=== PATIENT | male | born 1980 ===

== ENCOUNTER 2017-10-02 10:28 | Emergency (ER) | payer OTHER ==
[2017-10-02 11:10] VITALS: BP 108/72
--- NOTE | 2017-10-02 11:37 | UC ---
Skin Complaint HPI - HPI Summary HPI Summary: Itchy rash over the right upper leg that is spreading. Started at the THR surgical site. Has tried topical benedryl OTC hydrocortisone without relief. - History of Current Complaint Chief Complaint: UCRash Time Seen by Provider: 10/02/17 11:20 Stated Complaint: SKIN COMPLAINT Hx Obtained From: Patient Onset/Duration: Sudden Onset, Lasting Weeks, Worse Since - onset Skin Exposure Onset/Duration: Weeks Ago - 5 Onset Severity: Mild Current Severity: Moderate Pain Intensity: 0 Location: Discrete - right upper leg around incision extending to anterior leg and around buttocks. Character: Pruritus, Redness, Raised Aggravating Factor(s): Touch Alleviating Factor(s): Nothing Associated Signs & Symptoms: Positive: Rash. Negative: Numbness, Weakness, Fever, Chills, Lightheadedness, Syncope, Bruising, Tenderness Related History: Recent change in medication - topical adhesives and medications. - Allergy/Home Medications Allergies/Adverse Reactions: Allergies Allergy/AdvReac Type Severity Reaction Status Date / Time CERTAIN SOAPS, DEODERANTS Allergy Unknown Rash Uncoded 10/02/17 10:59 Home Medications: Home Medications Apixaban* [Eliquis*] 5 mg PO BID 10/02/17 [History Confirmed 10/02/17] diPHENhydraMINE PO* [Benadryl PO 25 MG TAB*] 50 mg PO Q6H PRN 10/02/17 [History Confirmed 10/02/17] Review of Systems Skin: Rash Musculoskeletal: Arthralgia - right hip and shoulder Is Patient Immunocompromised?: No All Other Systems Reviewed And Are Negative: Yes PMH/Surg Hx/FS Hx/Imm Hx Previously Healthy: Yes - Surgical History Surgical History: Yes Surgery Procedure, Year, and Place: RIGHT TOTAL HIP. RIGHT SHOULDER/CLAVICAL RECONSTRUCTION WITH HARDWARE. BILATERAL CARPAL TUNNEL REPAIR - Family History Known Family History: Positive: Diabetes Negative: Cardiac Disease - Social History Occupation: Disabled Lives: With Family Alcohol Use: None Substance Use Type: None Smoking Status (MU): Never Smoked Tobacco Physical Exam Triage Information Reviewed: Yes Appearance: Well-Appearing, No Pain Distress - sitting down, Well-Nourished Vital Signs: Initial Vital Signs Temp 97.7 F 10/02/17 10:56 Pulse 106 10/02/17 10:56 Resp 18 10/02/17 10:56 BP 108/72 10/02/17 10:56 Pulse Ox 96 10/02/17 10:56 Vital Signs Reviewed: Yes Eyes: Positive: Conjunctiva Clear Neck exam: Normal Respiratory Exam: Normal Cardiovascular Exam: Normal Musculoskeletal: Positive: Strength Limited @ - right hip, ROM Limited @ - right hip Neurological Exam: Normal Psychological Exam: Normal Skin: Positive: rashes - erythematous papular rash right upper outer leg into the anterior leg and right buttocks. Course/Dx - Differential Diagnoses - Skin Complaint Differential Diagnoses: Contact Dermatitis, Eczema, Urticaria, Viral Exanthem - Diagnoses Provider Diagnoses: Contact dermatitis Discharge - Sign-Out/Discharge Documenting (check all that apply): Discharge - Discharge Plan Condition: Stable Disposition: HOME Prescriptions: Clobetasol 0.05% OINT* 1 applic TOPICAL BID #50 gm Patient Education Materials: Contact Dermatitis (ED), Clobetasol Propionate ( On the skin) Referrals: Bailey DENNIS,Pravin Werner [Primary Care Provider] - - Billing Disposition and Condition Condition: STABLE Disposition: HOME
== END 2017-10-02 11:55 | disposition home or self-care (01) ==
LOC: UCCORT 10:28
DX: L25.9 Unspecified contact dermatitis, unspecified cause (principal)
CPT/HCPCS: 99202; G0463

== ENCOUNTER 2019-06-10 12:42 | Emergency (ER) | payer MEDICARE, OTHER ==
--- OUTSIDE RECORDS SUMMARY | 2019-06-10 12:50 | XMS REPORT | Continuity of Care Document ---
:1980 Author Organization [facility] Care Team Providers Name Role Phone LA SALAZAR Primary Care Physician Allergies and Intolerances No Allergy Data in the System Medications No Known Medications Medications At Time Of Discharge No data in the system Problems No Data in the system Procedures Code Code System Procedure Date RIGHT ARM SURGERY U Results No data in the system Social History Code Code System Social History Observation Description Dates Observed 920136298 SNOMED CT Current Smoking Status Never smoker UNK AdministrativeGender Sex Assigned At Unknown Vital Signs Code Code System Vitals Value Date 8310-5 [facility] Body Temperature 97.1 [degF] 04/25/2019 8865-8 [facility] Pulse Rate 91 {beats}/min 04/25/2019 9279-1 [facility] Respiratory Rate 15 /min 04/25/2019 77798-4 [facility] O2% BldC Oximetry 97 % 04/25/2019 8480-6 [facility] BP Systolic 130 mm[Hg] 04/25/2019 8462-4 [facility] BP Diastolic 84 mm[Hg] 04/25/2019 8302-2 [facility] Height 73 [in_i] 04/25/2019 70908-0 [facility] Weight 117.93 kg 04/25/2019 3140-1 [facility] Body surface area Derived from formula 2.41 m2 04/25/2019 01181-2 [facility] BMI (Body Mass Index) 34.4 kg/m2 04/25/2019 Goals Section No data in the system Health Concerns No data in the systemEncounter Diagnosis Date Code Code System Diagnosis Status S09.93XA ICD10 UNSPECIFIED INJURY FACE INITIAL ENC Active Advance Directives *RHIO - CONSENT IS YES Directive Type Effective Date [employer] Practitioner Notes Supporting Document Name Address Phone No Directive Type 10/20/2011 Not Specified Not Specified Not Specified None No specified 10:17:00 AM Encounters Encounter Diagnosis Location Date UNSPECIFIED INJURY FACE INITIAL ENC [facility] 04/25/2019 Family History Patient has no knowledge of family history Functional Status Code Functional Condition Code System Date Status Independent adls SNOMED CT 04/25/2019 Active Appears well nourished/hydrated SNOMED CT 04/25/2019 Active Immunizations Vaccine Code Code System Vaccine Name Date Status UTD Completed 115 CVX tetanus toxoid, reduced 06/13/2014 Completed diphtheria toxoid, and acellular pertussis vaccine, adsorbed 115 CVX tetanus toxoid, reduced 06/03/2015 Not given (patient diphtheria toxoid, and objection) acellular pertussis vaccine, adsorbed Medical Equipment No data in the system Mental Status Code Cognitive Condition Code System Date Status Oriented x [address] 04/25/2019 Active Skin warm & dry SNOMED CT 04/25/[address] 04/25/2019 Active Assessment and Plan Assessments No data in the systemPlan Of Treatment No data in the systemPending Tests No data in the system Hospital Discharge Instructions No data in the system Reason for Visit Reason for Visit Nose Pain
--- OUTSIDE RECORDS SUMMARY | 2019-06-10 12:50 | XMS REPORT | Continuity of Care Document ---
:1980 Author Organization [facility] Care Team Providers Name Role Phone LA SALAZAR Primary Care Physician Allergies and Intolerances No Allergy Data in the System Medications RxNorm Medication Dose Route Instructions Start Date End Date Status 723 Amoxicillin 500 mg oral orally 3 times per day Completed (10 days) Medications At Time Of Discharge No data in the system Problems No Data in the system Procedures Code Code System Procedure Date RIGHT ARM SURGERY U Results No data in the system Social History Code Code System Social History Observation Description Dates Observed 787074909 SNOMED CT Current Smoking Status Never smoker UNK AdministrativeGender Sex Assigned At Unknown Vital Signs Code Code System Vitals Value Date 8310-5 [facility] Body Temperature 97.7 [degF] 04/25/2019 8865-8 [facility] Pulse Rate 89 {beats}/min 04/25/2019 9279-1 [facility] Respiratory Rate 16 /min 04/25/2019 86536-9 [facility] O2% BldC Oximetry 96 % 04/25/2019 8480-6 [facility] BP Systolic 142 mm[Hg] 04/25/2019 8462-4 [facility] BP Diastolic 97 mm[Hg] 04/25/2019 8302-2 [facility] Height 73 [in_i] 04/25/2019 29180-4 [facility] Weight 118 kg 04/25/2019 3140-1 [facility] Body surface area Derived from formula 2.41 m2 04/25/2019 25522-6 [facility] BMI (Body Mass Index) 34.4 kg/m2 04/25/2019 Goals Section No data in the system Health Concerns No data in the systemEncounter Diagnosis Date Code Code System Diagnosis Status S09.93XA ICD10 UNSPECIFIED INJURY FACE INITIAL ENC Active Advance Directives *RHIO - CONSENT IS YES Directive Type 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 Supporting Document Name Address Phone No Directive Type 10/20/2011 Not Specified Not Specified Not Specified None No specified 10:17:00 AM Encounters Encounter Diagnosis Location Date UNSPECIFIED INJURY FACE INITIAL ENC [facility] 04/25/2019 Family History Patient has no knowledge [...] Code Cognitive Condition Code System Date Status Mild distress SNOMED CT 04/25/2019 [facility] [address] [facility] 04[facility]2019 [facility] 04/25/2019 Active Assessment and Plan Assessments No data in the systemPlan Of Treatment No data in the systemPending Tests No data in the system Hospital Discharge Instructions No data in the system Reason for Visit Reason for Visit Nose Pain
--- NOTE | 2019-06-10 12:53 | UC ---
Respiratory Complaint HPI - HPI Summary HPI Summary: 39 yo male presents with URI symptoms. He tells me that for the last 1-1.5 weeks he has had a productive cough and sinus pain/pressure/congestion. Reports a fever of 103F on 06/06. Has been taking OTC cough syrup with mild relief. Over the last 2 days has had thick yellow phelgm and has noticed some blood streaks. He does not smoke. Denies SOB, chest pain, abdominal pain, n/v - History of Current Complaint Stated Complaint: CHEST CONGESTION, COUGH Time Seen by Provider: 06/10/19 12:53 Hx Obtained From: Patient Onset/Duration: Gradual Onset Timing: Constant Severity Initially: Mild Severity Currently: Moderate Pain Intensity: 6 Pain Scale Used: 0-10 Numeric Character: Cough: Productive - Allergies/Home Medications Allergies/Adverse Reactions: Allergies Allergy/AdvReac Type Severity Reaction Status Date / Time CERTAIN SOAPS, DEODERANTS Allergy Unknown Rash Uncoded 06/10/19 12:51 Home Medications: Home Medications Cough Syrup 10 ml PO Q4H PRN 06/10/19 [History] PMH/Surg Hx/FS Hx/Imm Hx - Additional Past Medical History Additional PMH: None - Surgical History Surgical History: Yes Surgery Procedure, Year, and Place: RIGHT TOTAL HIP. RIGHT SHOULDER/CLAVICAL RECONSTRUCTION WITH HARDWARE. BILATERAL CARPAL TUNNEL REPAIR - Family History Known Family History: Positive: Diabetes Negative: Cardiac Disease - Social History Occupation: Employed Full-time Lives: With Family Alcohol Use: None Substance Use Type: None Smoking Status (MU): Never Smoked Tobacco Review of Systems All Other Systems Reviewed And Are Negative: No Constitutional: Positive: Fever Skin: Positive: Negative Eyes: Positive: Negative ENT: Positive: Nasal Discharge, Sinus Congestion, Sinus Pain/Tenderness Respiratory: Positive: Cough Cardiovascular: Positive: Negative Gastrointestinal: Positive: Negative Neurological: Positive: Negative Psychological: Positive: Negative Physical Exam - Summary Physical Exam Summary: GENERAL: NAD. WDWN. No pain distress. SKIN: No rashes, sores, lesions, or open wounds. HEENT: Head: AT/NC Eyes: Conjunctiva clear without inflammation or discharge. Ears: Hearing grossly normal. TMs intact, no bulging, erythema, or edema. Nose: Nasal mucosa pink and moist. TTP maxillary and frontal sinus. Throat: Posterior oropharynx without exudates, erythema, or tonsillar enlargement. Uvula midline. NECK: Supple. Nontender. No lymphadenopathy. CHEST: Mild wheezing throughout. Decreased breath sounds throughout. No accessory muscle use. Breathing comfortably and in no distress. CV: RRR. Pulses intact. Cap refill <2seconds NEURO: Alert. PSYCH: Age appropriate behavior. Triage Information Reviewed: Yes Vital Signs: Vital Signs: Temp Pulse Resp BP Pulse Ox 98.1 F 94 15 127/90 98 06/10/19 12:53 06/10/19 12:53 06/10/19 12:53 06/10/19 12:53 06/10/19 12:53 Vital Signs Reviewed: Yes Diagnostics - Radiology CXR Radiology Interpretation Completed By: Radiologist Summary of Radiographic Findings: IMPRESSION: NO ACTIVE CARDIOPULMONARY DISEASE. Respiratory Course/Dx - Course Course Of Treatment: Pt did not want CXR today, but after discussing his worsening symptoms, exam, and noticed blood in sputum he was agreeable. CXR as above. He declined nebulizer treatment in the clinic. CXR is negative, but given clinical exam, fever, and blood streaked phlegm - will treat as PNA Will dc with albuterol inhaler and anbx. Advised to be rechecked if he does not improve within 4-5 days - Differential Dx/Diagnosis Provider Diagnosis: Bronchitis Discharge ED - Sign-Out/Discharge Documenting (check all that apply): Patient Departure All imaging exams completed and their final reports reviewed: Yes - Discharge Plan Condition: Stable Disposition: HOME Prescriptions: Albuterol HFA INHALER* [Ventolin HFA Inhaler*] 1 - 2 puff INH Q6H PRN #1 mdi PRN Reason: Sob/Wheezing Amoxicillin/Clavulanate TAB* [Augmentin TAB 875*] 875 mg PO BID #14 tab Azithromycin TAB* [Zithromax TAB (Z-OCTAVIA) 250 mg #6 tabs] 2 tab PO .TODAY, THEN 1 DAILY #1 octavia Patient Education Materials: Acute Bronchitis (ED), Pneumonia (ED) Referrals: No Primary Care Phys,NOPCP [Primary Care Provider] - Additional Instructions: If you develop a fever, shortness of breath, chest pain, new or worsening symptoms - please call your PCP or go to the ED immediately. - Billing Disposition and Condition Condition: STABLE Disposition: Home
[2019-06-10 12:57] VITALS: BP 127/90
== END 2019-06-10 13:21 | disposition home or self-care (01) ==
LOC: UCCORT 12:42
DX: J40 Bronchitis, not specified as acute or chronic (principal); Z91.09 Other allergy status, other than to drugs and biological substances
CPT/HCPCS: 71046; 99212; G0463